=== PATIENT | male | born 1990 | race Caucasian/White ===

== ENCOUNTER 2018-01-26 13:54 | Emergency (ER) | payer SELFPAY ==
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
[2018-01-26 17:03] VITALS: BP 100/65
== END 2018-01-26 17:03 | disposition home or self-care (01) ==
PROC: 2W3JX1Z Immobilization of Right Finger using Splint (ICD-10-PCS; principal; 2018-01-26)
DX: S62.317A Displaced fracture of base of fifth metacarpal bone, left hand, initial encounter for closed fracture (principal); V18.0XXA Pedal cycle driver injured in noncollision transport accident in nontraffic accident, initial encounter; Y92.9 Unspecified place or not applicable; Y93.9 Activity, unspecified; Y99.9 Unspecified external cause status

== ENCOUNTER 2018-01-28 16:02 | Day surgery (SDC) | payer SELFPAY ==
[2018-01-28] MEDS ORDERED: LR 1,000 ML IV ONE (16:19)
[2018-01-28] MEDS ORDERED: ceFAZolin 2 GM/DEXTROSE 100 ML IV ONE (17:25)
--- NOTE | 2018-01-28 18:30 | PDHPUP ---
History & Physical Update H&P update statement: This history and physical update is based on an assessment of the patient which was completed after admission or registration (within 24 hours), but prior to the surgery/procedure. H&P update: H&P reviewed & patient examined, no change in patient's condition since H&P completed
[2018-01-28] MEDS ORDERED: MIDAZOLAM 2 MG/2 ML VIAL IVP ONE (18:53)
--- NOTE | 2018-01-28 18:54 | PDANEPAE ---
ANE History of Present Illness right 5th digit ORIF ANE Past Medical History - Cardiovascular History Hx Hypertension: No Hx Arrhythmias: No Hx Chest Pain: No Hx Coronary Artery / Peripheral Vascular Disease: No Hx CHF / Valvular Disease: No Hx Palpitations: No - Pulmonary History Hx COPD: No Hx Asthma/Reactive Airway Disease: No Hx Recent Upper Respiratory Infection: No Hx Oxygen in Use at Home: No Hx Sleep Apnea: No - Endocrine History Hx Diabetes: No ANE Review of Systems Review of systems is: negative Review of Systems: - Exercise capacity Exercise capacity: >=4 METS ANE Patient History - Allergies Allergies/Adverse Reactions: No Known Allergies Allergy (Unverified 01/26/18 13:56) - Home Medications Home medications: home medication list seen and reviewed Home Medications: Ambien 01/26/18 [Last Taken 01/27/18] Xanax 01/26/18 [Last Taken 12/14/17] Advil 01/28/18 [Last Taken 01/28/18] - NPO status NPO Since - Liquids (Date): 01/28/18 NPO Since - Liquids (Time): 12:00 NPO Since - Solids (Date): 01/28/18 NPO Since - Solids (Time): 09:00 - Anes Hx Anes Hx: no prior problems - Smoking Hx Smoking Status: Never smoked ANE Labs/Vital Signs - Vital Signs Blood Pressure: 108/73 Heart Rate: 46 Respiratory Rate: 18 O2 Sat (%): 97 Height: 175.26 cm Weight: 63.503 kg ANE Physical Exam - Airway Neck exam: FROM Mallampati Score: Class 2 Mouth exam: normal dental/mouth exam - Pulmonary Pulmonary: no respiratory distress - Cardiovascular Cardiovascular: regular rate and rhythym - ASA Status ASA Status: I, E ANE Anesthesia Plan Anesthesia Plan: GA w LMA
[2018-01-28] MEDS ORDERED: fentaNYL 100 MCG/2 ML INJ ONE (19:02)
[2018-01-28] MEDS ORDERED: PROPOFOL 200 MG/20 ML VIAL ONE (19:02)
[2018-01-28] MEDS ORDERED: LIDOCAINE 2% 5 ML SDV ONE (19:05)
[2018-01-28] MEDS ORDERED: BUPIVACAINE 0.5% 30 ML SDV ONE (19:07)
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
[2018-01-28] MEDS ORDERED: DEXAMETHASONE 4 MG/ML VIAL ONE (20:00)
[2018-01-28] MEDS ORDERED: NALOXONE HCL 0.4 MG/ML INJ IVP PRN (21:22)
[2018-01-28] MEDS ORDERED: oxyCODONE IR 5 MG TAB PO PRN (21:22)
[2018-01-28] MEDS ORDERED: fentaNYL 100 MCG/2 ML INJ IVP PRN (21:22)
[2018-01-28] MEDS ORDERED: ONDANSETRON 4 MG/2 ML VIAL IVP PRN (21:22)
[2018-01-28] MEDS ORDERED: PROMETHAZINE HCL 25 MG/ML INJ IVP PRN (21:22)
[2018-01-28] MEDS ORDERED: LR 500 ML IV PRN (21:22)
[2018-01-28] MEDS ORDERED: ALBUTEROL 3 ML DEYVIAL IH PRN (21:22)
[2018-01-28] MEDS ORDERED: ACETAMINOPHEN 500 MG TAB PO PRN (21:22)
[2018-01-28] MEDS ORDERED: HYDROCODONE/APAP 5/325 TAB PO PRN (21:22)
[2018-01-28] MEDS ORDERED: HYDROmorphONE/DILAUDID 2 MG/ML INJ IVP PRN (21:22)
--- NOTE | 2018-01-28 21:22 | POSTANESTH ---
Post Anesthetic Evaluation Cardiovascular Status: Normal, Stable Respiratory Status: Normal, Stable Level of Consciousness/Mental Status: Can Participate in Eval, Alert and Oriented Pain Control: Adequate, Prn Tx Ordered Nausea/Vomiting Control: Adequate, Prn Tx Ordered Complications Possibly Related to Anesthesia: None Noted
[2018-01-28 23:04] VITALS: BP 113/69
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
== END 2018-01-28 22:48 | disposition home or self-care (01) ==
LOC: FSGY 16:02
PROVIDERS: ATTEND Orthopaedic Surgery Hand Surgery
DX: S63.266A Dislocation of metacarpophalangeal joint of right little finger, initial encounter (principal); S62.616A Displaced fracture of proximal phalanx of right little finger, initial encounter for closed fracture; S63.416A Traumatic rupture of collateral ligament of right little finger at metacarpophalangeal and interphalangeal joint, initial encounter; V18.0XXA Pedal cycle driver injured in noncollision transport accident in nontraffic accident, initial encounter; Y93.55 Activity, bike riding
CPT/HCPCS: C1713; J0690; J1100; J2250; J2704; J3010

== ENCOUNTER → 2018-02-07 | Outpatient (CLI) | payer OTHER | LOC: BMCIMAGING 11:05 | PROVIDERS: ATTEND Physician Assistant | DX: S62.616D Displaced fracture of proximal phalanx of right little finger, subsequent encounter for fracture with routine healing (principal) ==

== ENCOUNTER → 2018-02-21 | Outpatient (CLI) | payer OTHER | LOC: BMCIMAGING 13:30 | PROVIDERS: ATTEND Orthopaedic Surgery Hand Surgery | DX: S62.616A Displaced fracture of proximal phalanx of right little finger, initial encounter for closed fracture (principal) ==

== ENCOUNTER → 2018-06-13 | Outpatient (CLI) | payer OTHER, MEDICAID | LOC: BMCIMAGING 10:39 | PROVIDERS: ATTEND Orthopaedic Surgery Hand Surgery | DX: M25.532 Pain in left wrist (principal) ==